=== PATIENT | female | born 1940 | race Caucasian/White ===

== ENCOUNTER 2019-03-29 06:05 | Inpatient (IN) | payer MEDICARE, SELFPAY ==
[2019-03-19 08:58] VITALS: BMI 27.8
[2019-03-29] VITALS (18 sets, daily range): BP systolic 133–147; BP diastolic 53–115; PULSE 62–119; RESP 13–18; TEMP 35.9–36.9; O2SAT 90–97; BMI 27.1
--- NOTE | 2019-03-29 | DI.RAD.S_ITS ---
PROCEDURE: XR CERVICAL SPINE 2V OR 3V INDICATIONS: C3-4, C4-5, C5-6 ACDF TECHNIQUE: 2 view(s) of the cervical spine were acquired. COMPARISON: None. FINDINGS: Bones: Immediate postoperative evaluation shows expected anatomic alignment established after after C3-C6 discectomy procedure as and anterior fusion plating with interbody disc prosthesis contiguously crossing C3-4, C4-5, and C5-6 Soft tissues: No prevertebral soft tissue swelling. IMPRESSION: Normal alignment established after C3-C6 discectomy procedures and anterior plate fusion. Dictated by: Kennedy Moody M.D. on 03/29/2019 at 12:04 Approved by: Kennedy Moody M.D. on 03/29/2019 at 12:06
[2019-03-29] MEDS: LACTATED RINGERS 1,000 ML 42 ML IV ×2 (07:24→09:46)
[2019-03-29] MEDS: GABAPENTIN 300 MG CAPSULE PO ×2 (07:27→20:46)
[2019-03-29] MEDS: CELECOXIB 200 MG CAPSULE 400 MG PO (07:27)
[2019-03-29] MEDS: ACETAMINOPHEN 325 MG TABLET 975 MG PO (07:27)
--- NOTE | 2019-03-29 07:42 | PM.PREOP ---
Pre-operative Note Interval Note History & Physical reviewed/Exam performed by Physician: Yes Changes to H&P: No
[2019-03-29] MEDS: CLINDAMYCIN 600 MG/50 ML PIGGYBACK 50 MG IV ×2 (08:05→16:07)
--- NOTE | 2019-03-29 08:50 | SUR.OPER ---
Supine, head on gel donut. Arms padded with gel pads, tucked at sides, towel roll under shoulders. Safety belt at thigh. Legs uncrossed.
[2019-03-29] MEDS: BUPIVACAINE 0.25% W/ EPI 30 ML VIAL INJ (08:57)
--- NOTE | 2019-03-29 11:09 | P.OP_ITS ---
Operative Date/Time/Diagnoses Date of procedure: 03/29/19 Time of procedure: 07:59 Pre-op diagnosis: 1. C3-4, C4-5, C5-6 spinal stenosis 2. 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 C3-4, C4-5, C5-6 anterior cervical diskectomy and fusion 2. C3-4, C4-5, C5-6 anterior interbody cage placement 3. C3-4, C4-5, C5-6 anterior instrumentation with plate and screw placement in C3, C4-C5-C6 vertebrae 4. Utilization of microsurgical technique and operating microscope Same procedure as scheduled: Yes Indications: Patient has been having chronic neck pain and worsening cervical radiculopathy. Patient failed multiple conservative management with worsening pain weakness and numbness in her upper extremity. Patient has been having difficulty performing activity of daily living. After discussing risks benefits of treatment options, patient elected proceed with surgery. Surgeon: Thor Sweeney Grip Wrapper: Carri Sequeira Click Yes if Unassisted: No Anesthesia Type: General Operative Notes Closure Type: primary Specimen(s): none sent Prosthetic devices, grafts, tissues, transplants, or devices: GLobus extend plate, PEEK cages Applied: catheter Estimated Blood Loss (mL): 20 Blood products transfused: none Procedure in detail: Patient was seen in the preoperative area. Risks and benefits of the surgery was discussed with the patient. Operative consent was obtained and placed in the chart. Patient was then taken to the operative room. Prophylactic antibiotic was given less than 0.5 hr prior to skin incision. General anesthesia was administered. Patient was placed into a supine position on her radiolucent table. Bilateral shoulders were taped down to allow proper C- arm imaging. Anterior cervical area was prepped and draped in a sterile fashion. Time-out was performed at this time. Using lateral C-arm imaging, the level between C3 and C6 was identified and marked on patient's neck. A oblique incision from midline towards medial border of sternocleidomastoid muscle was made. The platysma muscle was incised in line with skin incision. Metzenbaum scissor was used to develop the plane between the medial border of sternocleidomastoid d and the strap muscles medially. The carotid sheath and its contents were identified and protected behind the hand- held retractor during the entire case. The plane between the carotid sheath and strap muscles was developed with Metzenbaum scissors. Dissection was made down to the level of the anterior cervical fascia. Longus colli muscle was incised on the anterior aspect of vertebral bodies bilaterally from C3-C6. Spinal needle was placed into the C3-4 disc space and confirmed with lateral C-arm imaging. Using microsurgical technique and operative microscope, anterior cervical diskectomy was performed at C3-4 C4-5 and C5-6 level. This was done by removing the disc material, removing the anterior and posterior osteophytes posterior longitudinal ligaments along with performing bilateral foraminotomies at all 3 levels. Patient was found to have severe central and foraminal stenosis at all 3 levels. Patient's stenosis was fully decompressed after decompression was completed. After the diskectomy was completed, 3 anterior interbody cages were obtained. The cages were packed with globus via cell bone grafting material. One cage each along with the bone grafting material was then packed into the interbody spaces from C3-C6 with one cage into each interbody level. After the cages were placed, the anterior cervical plate was stabilized to the C3-C6 vertebrae using 2 screws at each each level. Total 8 screws were placed. After confirming placement of the hardware with AP and lateral C-arm imaging, the screws were locked into the plate using the locking mechanism and torque limiting screwdriver. After the hardware was placed and confirmed with AP and lateral C-arm imaging, the wound was irrigated with sterile normal saline. The platysma muscle and the subcutaneous tissue was closed with 2-0 Vicryl. The skin was closed with 4-0 Monocryl and Steri-Strips. Patient tolerated the procedure well. Patient was transferred recovery room in stable condition. There were no complications. Complications: none Post-operative Condition: stable Disposition: PACU Plan for aftercare: Admit to inpatient hospital
[2019-03-29] MEDS: HYDROMORPHONE 2 MG INJ IV (11:50)
--- NOTE | 2019-03-29 11:57 | SUR.PHASEI ---
Patient reported pain improving.
--- NOTE | 2019-03-29 12:10 | SUR.PHASEI ---
Report called to Radha
--- NOTE | 2019-03-29 12:16 | SUR.PHASEI ---
Dr. Vigil notified HR 108, no new orders. Ok for patient to discharge.
--- NOTE | 2019-03-29 12:31 | SUR.PHASEI ---
Patient transferred to the floor on o2 and with belongings bag. Report to Radha. VS stable. IV saline locked. Neck dressing CDI, collar in place. Patient moving arms and legs independently.
[2019-03-29] MEDS: HYDROCODONE/ACET 5/325 TABLET 1 TAB PO ×2 (14:12→21:16)
[2019-03-29] MEDS: SODIUM CHLORIDE 0.9% 1,000 ML 100 ML IV (14:15)
--- NOTE | 2019-03-29 15:14 | PC.NURSE ---
Patient to floor around 1230. Pulse rate has been high between 105-110. At one point it went up to 115. aware as well as anesthesiologist with a fax sent. Isatu ESCALERA also aware and will let them know again. She is asymptomatic and denies heart palpitations. Dressing to anterior neck is cdi, with soft collar on. Had a jennings catheter down in surgery but had to immediately take this out as patient is allergic to latex. SURVEY WORKER Nurse states that she had 75cc out. Patient is now stating that she has the urge to go to the bathroom. She is A&Ox3, with mild dementia, or forgefulness. Given 1 vicodin earlier and pt is dozing. HR is still about 107. is in room and he is very attentive to patients need. No swallowing issues at this time, able to swallow pills whole. She has not asked to eat anything at this time as she is sleepy but reorients well. Patient is on 2l of o2 and her sats are 97%. Resting comfortably.
[2019-03-29] MEDS: SENNOSIDES 8.6 MG TABLET 17.2 MG PO (20:46)
[2019-03-29] MEDS: MONTELUKAST 10 MG TABLET PO (20:46)
[2019-03-29] MEDS: DOCUSATE 100 MG CAPSULE PO (20:46)
[2019-03-29] MEDS: LOSARTAN 50 MG TABLET PO (20:46)
[2019-03-29] MEDS: FLUTICASONE 110MCG HFA 120 PUFF INH (20:47)
[2019-03-29] MEDS: SERTRALINE 50 MG TABLET 100 MG PO (20:47)
[2019-03-30] MEDS: CLINDAMYCIN 600 MG/50 ML PIGGYBACK 50 MG IV (00:33)
[2019-03-30] MEDS: SODIUM CHLORIDE 0.9% 1,000 ML 100 ML IV (00:34)
[2019-03-30 05:50] VITALS: BP 140/37; PULSE 88; RESP 16; TEMP 36.7; O2SAT 95
[2019-03-30 07:20] LABS: Hematocrit 36.9 % (36-46); Hemoglobin 12.6 g/dL (12.0-16.0)
[2019-03-30] MEDS: FLUTICASONE 110MCG HFA 120 PUFF INH (07:54)
--- NOTE | 2019-03-30 08:02 | RT ---
Encouraged pt to DB&C 10X/hr while awake. Cont pulse ox removed, the fabulous Nurse Radha informed.
[2019-03-30 08:03] VITALS: PULSE 75; RESP 16; O2SAT 96
[2019-03-30 08:20] VITALS: BP 143/89; PULSE 75; RESP 16; TEMP 36.3; O2SAT 98
[2019-03-30] MEDS: EZETIMIBE 10 MG TABLET PO (10:16)
[2019-03-30] MEDS: hydroCHLOROthiazide 25 MG TABLET 50 MG PO (10:16)
[2019-03-30] MEDS: FLUTICASONE 120 SPRAY/16 GM SPRAY.SUSP NASAL (10:16)
[2019-03-30] MEDS: HYDROCODONE/ACET 5/325 TABLET 1 TAB PO ×2 (10:16→14:26)
[2019-03-30] MEDS: DOCUSATE 100 MG CAPSULE PO (10:17)
--- NOTE | 2019-03-30 11:09 | OT.IP.EVAL ---
Current Diagnoses Other spondylosis with myelopathy, cervical region (03/29/19) Spinal stenosis, cervical region (03/29/19) Surgery Performed Operation Date: 03/29/19 07:45 Actual Procedures p C3-4, C4-5, C5-6 ACDF W/Anterior Instrumentation - Thor Sweeney MD Past Medical History (Last Updated 03/19/19 @ 09:55 by Sarah Puentes RN) Asthma (Acute) Brachial artery stenosis, right (Acute) Depression (Acute) DVT (deep venous thrombosis) (Acute ~2005) Fibromuscular dysplasia (Acute) Fibromuscular dysplasia of renal artery (Acute) GERD (gastroesophageal reflux disease) (Acute) HLD (hyperlipidemia) (Acute) HTN (hypertension) (Acute) Ischemic heart disease (Acute) Myocardial infarction (Acute ~2000) Numbness and tingling (Acute) Osteoarthritis (Acute) Pneumonia (Acute) Seizure (Acute) Tachycardia (Acute) Surgical History (Last Updated 03/19/19 @ 09:33 by Sarah Puentes RN) History of arthroplasty of left knee (Acute) History of arthroplasty of right knee (Acute) History of arthroscopy of right knee (Acute) History of total left hip arthroplasty (Acute) History of total right hip arthroplasty (Acute) Hx of bilateral cataract extraction (Acute) Hx of tubal ligation (Acute) S/P renal artery angioplasty (Acute) Occupational Therapy Inpatient Evaluation/Re-Eval M1 PT/OT-IP Prior Functional Status Start: 03/30/19 11:45 Freq: NEEDED Status: Active Protocol: Document 03/30/19 11:09 MERARY (Rec: 03/30/19 12:05 MERARY [id number]) Medical Review Prior Functional Status Medical History Reviewed Yes Diet/Fluid Consistency Regular Communication WNL Mobility and Gait Pt states she is independent with ambulation. She uses straight cane when her low back pain increases. Activities of Daily Living and IADL's Pt states she is independent with all self are skills and driving. Her does most of the cooking and nursing techn. Pt is able to walk through grocery store using cart for support. Prior Functional Level (Other details) Supportive can provide 24 hr assist at d/c. Social History Household Members spouse Living Arrangements House Number of Floors (Floors) Two Floors Number of Stairs To Enter/Railing? 1+1 stairs to enter (no rail); full flight of stairs to 2nd floor bedroom, bathroom with B rails Home Environment Standard Height Toilet,Walk in Shower,Built-In Shower Seat Home Equipment Straight Cane,Raised Toilet Seat Without Armrests,Hand Held Shower,Grab Bars In Shower Employment Status Retired M2 OT-IP Current Condition Start: 03/30/19 11:45 Freq: Status: Active Protocol: Document 03/30/19 11:09 PJM (Rec: 03/30/19 12:05 PJ [id number]) Occupational Therapy Current Condition Current Condition Evaluation Date 03/30/19 Treatment Diagnosis decreased self care, mobility s/p C3-6 ACDF w/instrumentation Diagnosis Onset Date 03/29/19 Post Operative Precautions Cervical Spine Precautions Soft Collar for Comfort,No Heavy Lifting,Log Roll M3 OT- IP Subjective and Pain Start: 03/30/19 11:45 Freq: Status: Active Protocol: Document 03/30/19 11:09 PJM (Rec: 03/30/19 12:05 PJ [id number]) OT- Subjective Occupational Therapy Visit Type Type Initial Evaluation Visit Start Time 10:10 Visit Stop Time 11:09 Total Visit Minutes 59 Notes Pt's here for education this session. Occupational Therapy Visit Comments Patient Comments I am swallowing OK. Patient/Caregiver Goals to resume independence with daily tasks at home with less pain, pt states she plans to have lumbar surgery when recovered from this surgery OT Pain Assessment Pain When Pain Assessed After Treatment Pain Present Pain Present Pain Reported Location Bilateral Upper Shoulder Intensity 3 Scale Used Numeric (1 - 10) Description Aching,Acute M4 OT- IP ADL's Start: 03/30/19 11:45 Freq: Status: Active Protocol: Document 03/30/19 11:09 PJM (Rec: 03/30/19 12:05 PJ [id number]) OT APR-Ihgn-Walrwyz General Evaluation Self-Feeding Ability Independent Comments OT Self-Feeding Comments pt denies swallowing deficits and educated to eat soft foods until fully recovered OT ADL-Grooming General Evaluation Grooming Ability Standby Assistance Comments OT Grooming Comments provided education re: body mechanics standing at sink OT ADL-Oral Care General Eval Oral Care Ability Standby Assistance Areas of Assistance Brushing Teeth Devices Oral Care Devices Toothbrush Comments Oral Care Comments provided education re: body mechanics standing at sink OT ADL-Dressing General Eval Upper Body Dressing Ability Independent Lower Body Dressing Ability Standby Assistance Areas Needing Assistance Underpants/Brief,Socks Assistive Devices Dressing Assistive Devices Oyster Planter,Sock Aid Comments OT Dressing Comments Pt has B LE stiffness from B hip and knee replacements. Provided domain architect and sock aid to assist with lower body dressing within C spine precautions. Pt familiar with use of this equipment from previous BLE surgeries but had given equipment away. Pt wears slip on shoes OT ADL-Toileting General Evaluation Toileting Ability Independent Comments OT Toileting Comments provided education re: body mechanics OT ADL-Bathing Devices Bathing Equipment Long Handled Sponge or [place], Hand Held Shower Sprayer Comments OT Bathing Comments pt declined to shower here; provided education re: safety, body mechanics and methods to keep incision dry; provided long bath sponge M5 OT- IP IADL's Start: 03/30/19 11:45 Freq: Status: Active Protocol: Document 03/30/19 11:09 PJ (Rec: 03/30/19 12:05 [facility] [id number]) OT-Instrumental Activities of Daily Living Deficits IADL Deficits Identified Deficits Home Safety Awareness Awareness of Need for Assistance at Home Good Awareness Ability to Problem Solve Emergency Able to Problem Solve Situations Medication Management Medication Management Caregiver Provides Supervision Medication Management Comments pt appears mildly forgetful, available to assist PRN Money Management Money Management No Deficits Identified Meal Preparation Meal Preparation Caregiver Provides Assist Meal Preparation Comments can assist PRN Design Quality Engineer Design Quality Engineer Caregiver Provides Assist Design Quality Engineer Comments can assist PRN Driving Driving Caregiver Provides Assist Driving Comments can assist PRN M6 OT- IP Functional Cognition Start: 03/30/19 11:45 Freq: Status: Active Protocol: Document 03/30/19 11:09 PJM (Rec: 03/30/19 12:05 [facility] [id number]) Cognitive Factors Limiting Selfcare Function Cognitive Ability Level of Alertness Alert Attention Span Ability Capable of Focused Attention, Capable of Sustained Attention Ability to Follow Commands Able to Follow One Step Commands Safety Awareness Decreased Recall of Precautions,Decreased Ability to Apply Precautions Problem Solving Ability Needs Assist to Identify Solutions Cognitive Comments Cognitive Assessment Comments Pt very verbal and distracts self with conversation at times; appears to have mild short term memory deficits. ? medication related OT- Vision and Hearing OT- Hearing Assessment OT- Hearing Assessment WFL OT- Vision Assessment Visual Acuity WFL,Glasses For Reading M7 OT- IP Mobility and Balance Start: 03/30/19 11:45 Freq: Status: Active Protocol: Document 03/30/19 11:09 PJM (Rec: 03/30/19 12:05 PJ [id number]) OT- Bed Mobility Assessment Rolling Type of Rolling Roll to Right Level of Assistance Standby Assistance Supine to Sit Supine to Sit Assist Standby Assistance,1 Person Assistance Sit to Supine Sit to Supine Assist 1 Person Assistance Scooting Scooting to Edge of Bed Standby Assistance,1 Person Assistance Scooting Up and Down in Bed 1 Person Assistance OT-Transfer Assessment Sit to and From Stand Sit to and from Stand Standby Assistance,1 Person Assistance Transfers Transfer Ability Standby Assistance,1 Person Assistance Technique Transfer Destination Chair,Toilet Transfer Technique Stand Step Pivot Devices Transfer Assistive Devices Gait Belt,Front Wheeled Walker Comments Mobility Comments provided education re: log rolling technique and precautions OT- Gait Assessment Gait Gait Assistance Required: Standby Assistance Distance (Feet) 25 Assistive Devices Assistive Device Gait Belt,Front Wheeled Walker Comments Gait Ability Comments no LOB or dizziness noted OT- Balance Assessment Sitting Balance and Reactions Static Sitting Balance Ability Good Dynamic Sitting Balance Ability Good Standing Balance and Reactions Static Standing Balance Ability Good Dynamic Standing Balance Ability Good Comments Other Balance Tests/Deviations/Treatment during lower body dressing, : toileting and standing at sink for grooming M8 OT- IP Objective Assessments Start: 03/30/19 11:45 Freq: Status: Active Protocol: Document 03/30/19 11:09 PJM (Rec: 03/30/19 12:05 PJ [id number]) OT Gross Range of Motion Upper Extremity Range of Motion Assessment Within Functional Limits OT Strength Upper Extremity Strength Assessment Within Functional Limits OT- Coordination Assessment Comments Coordination Comments BUE WFL for self care OT-Muscle Tone Assessment Muscle Tone WNL Yes OT Sensation Assessment Comments Summary Comments BUE WNL per pt Edema Edema Absent M9 OT- IP Assessment and Plan Start: 03/30/19 11:45 Freq: Status: Active Protocol: Document 03/30/19 11:09 PJM (Rec: 03/30/19 12:05 PJ [id number]) OT Summary Assessment and Plan Potential Rehabilitation Potential Good Summary Progress Towards Goals Safe For Discharge Assessment Summary Low complexity OT assessment and all education completed with pt and today re: C-spine precautions, body mechanics, log rolling and adapted self care techniques as described above. Pt is familiar with lower body dressing techniques from previous B DARIANA and B TKA. Anticipate pt will return home when medically stable and clears P.T. Supportive can provide 24 hr assist after d/c. No further OT services needed. Frequency of Treatment Frequency Of Treatment Discharge Discharge Recommendations OT Discharge Recommendations Home with Assistance Transportation Needs at Discharge Private Vehicle
--- NOTE | 2019-03-30 11:18 | PT.IIE ---
Current Diagnoses Other spondylosis with myelopathy, cervical region (03/29/19) Spinal stenosis, cervical region (03/29/19) Surgery Performed Operation Date: 03/29/19 07:45 Actual Procedures p C3-4, C4-5, C5-6 ACDF W/Anterior Instrumentation - Thor Sweeney MD Surgical History (Last Updated 03/19/19 @ 09:33 by Sarah Puentes RN) History of arthroplasty of left knee (Acute) History of arthroplasty of right knee (Acute) History of arthroscopy of right knee (Acute) History of total left hip arthroplasty (Acute) History of total right hip arthroplasty (Acute) Hx of bilateral cataract extraction (Acute) Hx of tubal ligation (Acute) S/P renal artery angioplasty (Acute) Medical History (Last Updated 03/19/19 @ 09:55 by Sarah Puentes RN) Asthma (Acute) Brachial artery stenosis, right (Acute) Depression (Acute) DVT (deep venous thrombosis) (Acute ~2005) Fibromuscular dysplasia (Acute) Fibromuscular dysplasia of renal artery (Acute) GERD (gastroesophageal reflux disease) (Acute) HLD (hyperlipidemia) (Acute) HTN (hypertension) (Acute) Ischemic heart disease (Acute) Myocardial infarction (Acute ~2000) Numbness and tingling (Acute) Osteoarthritis (Acute) Pneumonia (Acute) Seizure (Acute) Tachycardia (Acute) Physical Therapy Inpatient Evaluation/Re-Eval M1 PT/OT-IP Prior Functional Status Start: 03/30/19 11:45 Freq: NEEDED Status: Active Protocol: Document 03/30/19 11:09 MERARY (Rec: 03/30/19 12:05 MERARY [id number]) Medical Review Prior Functional Status Medical History Reviewed Yes Diet/Fluid Consistency Regular Communication WNL Mobility and Gait Pt states she is independent with ambulation. She uses straight cane when her low back pain increases. Activities of Daily Living and IADL's Pt states she is independent with all self are skills and driving. Her does most of the cooking and household appliance installer. Pt is able to walk through grocery store using cart for support. Prior Functional Level (Other details) Supportive can provide 24 hr assist at d/c. Social History Household Members spouse Living Arrangements House Number of Floors (Floors) Two Floors Number of Stairs To Enter/Railing? 1+1 stairs to enter (no rail); full flight of stairs to 2nd floor bedroom, bathroom with B rails Home Environment Standard Height Toilet,Walk in Shower,Built-In Shower Seat Home Equipment Straight Cane,Raised Toilet Seat Without Armrests,Hand Held Shower,Grab Bars In Shower Employment Status Retired M1 PT/OT-IP Prior Functional Status Start: 03/30/19 14:46 Freq: NEEDED Status: Active Protocol: Document 03/30/19 11:18 AB (Rec: 03/30/19 15:08 AB [id number]) Medical Review Prior Functional Status Medical History Reviewed Yes Diet/Fluid Consistency Regular Communication able to make needs known Mobility and Gait pt stated that she is modified independent with all mobilities and ambulation using SPC. occasionally does not use SPC indoors. Activities of Daily Living and IADL's per OT's note: Pt states she is independent with all self are skills and driving. Her does most of the cooking and household appliance installer. Pt is able to walk through grocery store using cart for support. Prior Functional Level (Other details) Supportive can provide 24 hr assist at d/c. Social History Household Members spouse Living Arrangements House Number of Floors (Floors) Two Floors Number of Stairs To Enter/Railing? 1 + 2 steps without rails to enter the house has 1 flight of steps (~ 15 steps) to get to 2nd level bedroom Home Environment Standard Height Toilet,Walk in Shower,Built-In Shower Seat Home Equipment Straight Cane,Hand Held Shower ,Grab Bars In Shower Employment Status Retired M2 PT-IP Current Condition Start: 03/30/19 14:46 Freq: NEEDED Status: Active Protocol: Document 03/30/19 11:18 AB (Rec: 03/30/19 15:08 AB [id number]) Physical Therapy Current Condition Current Condition Evaluation Date 03/30/19 Treatment Diagnosis C3-6 ACDF; difficulty in walking Onset Date 03/29/2019 Precautions Cervical Spine Precautions Soft Collar for Comfort,No Heavy Lifting,Log Roll M3 PT-IP Subjective Start: 03/30/19 14:46 Freq: NEEDED Status: Active Protocol: Document 03/30/19 11:18 AB (Rec: 03/30/19 15:08 AB [id number]) Subjective Physical Therapy Visit Type Type Initial Evaluation Visit Start Time 11:18 Visit Stop Time 12:09 Total Visit Minutes 51 Number of PRIMARY OPERATOR Visits 0 Physical Therapy Visit Comments Patient Comments pt agreeable to do PT Therapy Pain Assessment Pain When Pain Assessed At Rest Pain Present Pain Present Pain Reported Location Bilateral Upper Shoulder Intensity 4 Scale Used Numeric (1 - 10) Pain Management Techniques Re-positioning,Timing of Activity with Medications M4 PT-IP Mobility and Gait Start: 03/30/19 14:46 Freq: NEEDED Status: Active Protocol: Document 03/30/19 11:18 AB (Rec: 03/30/19 15:08 AB [id number]) PT-Bed Mobility Assessment Rolling Type of Rolling Log Rolling Level of Assist Standby Assistance Supine to Sit Supine to Sit Standby Assistance Sit to Supine Sit to Supine Standby Assistance Scooting Scooting to Edge of Bed Standby Assistance Scooting Up and Down in Bed Standby Assistance PT-Transfer Assessment Sit to and From Stand Sit to and from Stand Contact Guard Assistance,1 Person Assistance,Use of Upper Extremities Equipment Transfer Assistive Device Gait Belt,Straight Cane,Front Wheeled Walker Orthotic/Prosthetic Devices or Brace: Yes Transfers Transfer Destination Bed,Chair Transfer Technique ambulated Transfer Ability Level of Assist Contact Guard Assistance,1 Person Assistance,Use of Upper Extremities Comments Mobility Comments pt completed sit to stand from the chair. ambulated towards the bed using FWW SBA ~ 12 ft . completed log roll supine<> sit x 2 reps SBA and cues for techniques. pt ambulated using SPC towards the stairs ~ 125 ft SBA to occasional CGA and cues. pt completed stairs . pt with difficulty with stair climbing without AD. spouse in room and educated pt and spouse on stairs. conducted caregiver training up/down step stool using SPC/ ASSISTANT FINANCE MANAGER but further training is required. positioned pt on the chair. informed pt and spouse that PT will see pt again in the afternoon for more caregiver training. left pt in room with call light and table within reach. chair alarm on. spouse in room with pt. informed nurse that PT will conduct more caregiver training prior to d/c. Gait Assessment Gait Gait Assistance Required: Standby Assistance,Contact Guard Assist,1 Person Assist Distance (Feet) 125 Able to Maintain Weight Bearing Status Yes During Gait Assistive Devices Assistive Device Gait Belt,Straight Cane Orthotic/Prosthetic Devices or Brace: No Gait Deviations General Gait Pattern Antalgic,Decreased Stride Length,Decreased Feet Clearance,Flexed Trunk,Lateral Trunk Lean Factors Limiting Gait Function Factors Limiting Gait Function Decreased Activity Tolerance, Decreased Strength,Difficulty Following Directions,Limited Range of Motion,Pain,Poor Balance,Poor Safety Awareness Comments Gait Comments pt with antalgic gait increase lateral trunk flexion to the R and with forward flexed posture. Stair Climbing Assessment Evaluation Level of Assist On Stairs Standby Assistance,Moderate Assistance,Maximal Assistance, 1 Person Assistance Devices Stair Climbing Assistive Devices Straight Cane,Left Railing, Right Railing Technique/Endurance Stair Climbing Direction Ascend and Descend Stair Climbing Technique Step to Step Number of Steps Climbed 3 Query Text: Stair Climbing Set # Repetitions (reps) 3 Comments Stair Climbing Comments completed up/down steps using bilateral rails SBA completed up/down steps using SPC/ASSISTANT FINANCE MANAGER mod to max A and max cues completed up/down step stool mod to max A and max cues using SPC/ASSISTANT FINANCE MANAGER PT-Balance Assessment Sitting Balance and Reactions Static Sitting Balance Ability Good Dynamic Sitting Balance Ability Good Standing Balance and Reactions Static Standing Balance Ability Fair Dynamic Standing Balance Ability Fair Device Used SPC M5 PT-IP Objective Assessments Start: 03/30/19 14:46 Freq: NEEDED Status: Active Protocol: Document 03/30/19 11:18 AB (Rec: 03/30/19 15:08 AB [id number]) Orientation Orientation/Cognition Level of Alertness Alert Orientation Name,Place,Situation Language Function Ability Hard of Hearing Safety Awareness Decreased Safety Awareness Memory Description Short Term Impaired Comments pt initially alert but towards the end of the session became confused. nurse aware and stated that she has given her vicodin and may cause the confusion Gross Range of Motion Lower Extremity ROM Assessment Within Functional Limits Strength Lower Extremity Strength Assessment Right Impaired Hip 3+/5 Knee 3+/5 Sensation Assessment Sensation Gross Sensation WNL Muscle Tone Muscle Tone WNL Yes M6 PT-IP Treatment Start: 03/30/19 14:46 Freq: NEEDED Status: Active Protocol: Document 03/30/19 11:18 AB (Rec: 03/30/19 15:08 AB [id number]) Physical Therapy Treatment Education Education Provided Precautions,Weight Bearing Status,Post-Op Packet,Safety M7 PT-IP Assessment and Plan Start: 03/30/19 14:46 Freq: NEEDED Status: Active Protocol: Document 03/30/19 11:18 AB (Rec: 03/30/19 15:08 AB [id number]) PT Summary Assessment and Plan Potential Rehabilitation Potential Good Status of Condition at Evaluation Stable Summary Impairments Pain,ROM,Strength,Balance, Coordination,Sensation,Tone, Cognition,Bed Mobility, Transfers,Gait,Activity Tolerance Assessment Summary pt requiring SBA to CGA with ambulation using SPC but requires mod to max A with stairs without rails using SPC /ASSISTANT FINANCE MANAGER. caregiver training initiated but further training is needed. d/c plan depending on caregiver training result/safety and if spouse is able to assist pt safely, pt may go home when medically stable. Goals Bed Mobility Goal Independent Transfer Goal Independent,Cane Gait Goal Independent,Cane Gait Distance 150 Other Goals up/down 15 steps bilateral rails SBA up/down 1+2 steps without rails SPC/ASSISTANT FINANCE MANAGER min A Days to Meet Goals 5 Frequency of Treatment Frequency Of Treatment Twice a Day Treatment Plan Physical Therapy Treatment Plan Bed Mobility Training,Transfer Training,Gait Training, Therapeutic Exercise,Balance Retraining,Post Op Education, Discharge Planning,Hot or Cold Pack,Neuromuscular Re-ed, Coordination Retraining,Manual Therapy Other Recommendations and Next Treatment caregiver training, stair Focus climbing Recommendations To Nursing Amount of Assist Needed 1 Person Assist Discharge Recommendations PT Discharge Recommendations Home with 29/08 Assist Transportation Needs at Discharge Private Vehicle
[2019-03-30 12:28] VITALS: BP 160/67; PULSE 87; RESP 16; TEMP 36.1; O2SAT 95
--- NOTE | 2019-03-30 14:27 | PM.PN.1 ---
Subjective Subjective Date Patient Seen: 03/30/19 Time Patient Seen: 14:27 Interval history: 78 year old female who is POD#1 s/p C3-4, C4-5, C5-[address] Sweeney. No events overnight. Pain has been mild to moderate and controlled with [place]. She has mobilized with PT and completed OT. She has no chest pain, shortness of breath, nausea or vomiting. Exam Vital Signs (past 8 hours): - 03/30/19 08:03 03/30/19 08:20 Temperature 97.4 F L Pulse Rate 75 75 Respiratory Rate 16 16 Blood Pressure 143/89 H Pulse Oximetry 96 98 Oxygen Delivery Method Room Air Oxygen Flow Rate 0 Narrative Exam Narrative: 78 year old female resting comfortably in a chair. Alert and oriented in no acute distress. Patient wearing soft collar. Dressing in place is CDI. Skin Toggler strength is equal. Sensation intact in BUE. Objective Labs Result Diagrams: 03/30/19 06:35 Labs: Laboratory Results - last 24 hr 03/30/19 06:35 Hgb 12.6 Hct 36.9 Assessment & Plan Assessment & Plan narrative: Patient is progressing well postoperatively. She has mobilized with PT and worked with OT. She does have a flight of stairs at home which she will need to navigate. Will need to complete an additional stair training prior to discharge. Continue [place] as well as Vistaril for spasm. Scripts provided. Possible discharge to home later today or tomorrow morning pending stair training. Quality VTE Deep Vein Thrombosis/Pulmonary Embolism Present on Admission: No
[2019-03-30 15:48] VITALS: BP 159/79; PULSE 81; RESP 16; TEMP 37.1; O2SAT 94
--- NOTE | 2019-03-30 15:50 | PT.IPTN ---
Current Diagnoses Other spondylosis with myelopathy, cervical region (03/29/19) Spinal stenosis, cervical region (03/29/19) Surgery Performed Operation Date: 03/29/19 07:45 Actual Procedures p C3-4, C4-5, C5-6 ACDF W/Anterior Instrumentation - Thor Sweeney MD Physical Therapy Treatment Note M2 PT-IP Current Condition Start: 03/30/19 14:46 Freq: NEEDED Status: Discharge Protocol: Document 03/30/19 11:18 AB (Rec: 03/30/19 15:08 AB [id number]) Physical Therapy Current Condition Current Condition Evaluation Date 03/30/19 Treatment Diagnosis C3-6 ACDF; difficulty in walking Onset Date 03/29/2019 Precautions Cervical Spine Precautions Soft Collar for Comfort,No Heavy Lifting,Log Roll M3 PT-IP Subjective Start: 03/30/19 14:46 Freq: NEEDED Status: Discharge Protocol: Document 03/30/19 14:45 KS (Rec: 03/30/19 17:19 KS [id number]) Subjective Physical Therapy Visit Type Type Treatment Note Visit Start Time 14:45 Visit Stop Time 15:50 Total Visit Minutes 65 Number of SAFETY ADMINISTRATOR Visits 1 Physical Therapy Visit Comments Patient Comments PA present in room upon arrival from therapy. Pts present for caregiver training. Therapy Pain Assessment Pain When Pain Assessed At Rest Pain Present Pain Present Pain Reported Location Bilateral Upper Shoulder Scale Used no number given Pain Management Techniques Timing of Activity with Medications M4 PT-IP Mobility and Gait Start: 03/30/19 14:46 Freq: NEEDED Status: Discharge Protocol: Document 03/30/19 14:45 KS (Rec: 03/30/19 17:19 KS [id number]) PT-Transfer Assessment Sit to and From Stand Sit to and from Stand Standby Assistance,1 Person Assistance,Use of Upper Extremities Equipment Transfer Assistive Device Gait Belt,Straight Cane Orthotic/Prosthetic Devices or Brace: Yes Transfers Transfer Destination Chair Transfer Technique ambulated Transfer Ability Level of Assist Standby Assistance,1 Person Assistance,Use of Upper Extremities Comments Mobility Comments Pt was in chair upon arrival from therapy w/ in room. Pt able to recall surgical precautions. SAFETY ADMINISTRATOR assessed carryover of stair sequencing prior to initiating treatment, pt and need detailed reminders of SPC management and stair sequencing of LE and SPC. SAFETY ADMINISTRATOR demonstrated how to provide SPRING UPHOLSTERER w/ prior to stairs . Pt was SBA for sit<>stand from chair w/ SPC and ambulation. Pt then performed stair training and caregiver training w/ and returned to room SBA for stand <>sit. SAFETY ADMINISTRATOR then wrote instructions for stairs w/ SPC for pt and to take home. Pt and needed multiple cues when ascneding and descending stairs. SAFETY ADMINISTRATOR offered to try steps one more time in order for referall to go home, but pt adamantly refused. Gait Assessment Gait Gait Assistance Required: Standby Assistance,1 Person Assist Distance (Feet) 150 Able to Maintain Weight Bearing Status Yes During Gait Assistive Devices Assistive Device Gait Belt,Straight Cane Orthotic/Prosthetic Devices or Brace: No Gait Deviations General Gait Pattern Antalgic,Decreased Stride Length,Decreased Feet Clearance,Flexed Trunk,Lateral Trunk Lean Factors Limiting Gait Function Factors Limiting Gait Function Decreased Activity Tolerance, Decreased Strength,Difficulty Following Directions,Limited Range of Motion,Pain,Poor Balance,Poor Safety Awareness Comments Gait Comments Pt amabulated ~150 ft w/ SPC and SBA. On the way to stairs, pt used SPC in L hand, but switched to R hand on the way back from stairs and noted that she often switches hands while at home. Cues for upright posture required. Stair Climbing Assessment Evaluation Level of Assist On Stairs Contact Guard Assistance, Moderate Assistance,1 Person Assistance Devices Stair Climbing Assistive Devices Straight Cane Technique/Endurance Stair Climbing Direction Ascend and Descend Stair Climbing Technique Step to Step Number of Steps Climbed 3 Stair Climbing Set # Repetitions (reps) 3 Comments Stair Climbing Comments Pt completed first set of stairs w/ SAFETY ADMINISTRATOR providing CGA and hand hold assist in R hand and instructions for sequencing for pt and caregiver. Informed / caregiver prior to initiating stair training that he will need to provide full assistance and cues on second attempt. Pt needs instruction for correct sequencing and often tries to advance weaker limb first going up. Pt able to complete stairs w/ SAFETY ADMINISTRATOR w/ Max cues/step by step directions. On second attempt, SAFETY ADMINISTRATOR had to remind caregiver and pt of hand placement and sequencing several times. Pts was only able to give correct sequencing cues intermittently, and often confused limb and SPC advancement on stairs. During descent, needed frequent reminders for his foot placement and body mechanics for his own safety and pt complained several times that he was pushing her back and not letting her come down the step. Pt and trialled steps one more time, w / clear direction for to provide direct cues and pt to listen to before advancing limb or SPC. Slightly better carryover on third attempt ascending stairs , but pt not listening and slightly argumentative w/ . On descent, pts forgot correct hand placement for guarding/ assisting pt and needed reminder and pt advanced stronger LLE first, leaving RLE to provide support and became unsteady but recovered by momentarily grabbing R hand rail. Pt and did not work well together d/t pts arguing and lack of confidence as wells as both pt and caregiver forgetting correct sequencing. This SAFETY ADMINISTRATOR offered one last attempt at stairs to see if pt and could perform safely w /o cues, but pt adamantly refused and said she has been using the stairs for 15 years and is not going to fall. Pt and left in room w/ instructions for stair sequencing and guarding. PT-Balance Assessment Sitting Balance and Reactions Static Sitting Balance Ability Good Dynamic Sitting Balance Ability Good Standing Balance and Reactions Static Standing Balance Ability Fair Dynamic Standing Balance Ability Fair Device Used SPC M5 PT-IP Objective Assessments Start: 03/30/19 14:46 Freq: NEEDED Status: Discharge Protocol: Document 03/30/19 11:18 AB (Rec: 03/30/19 15:08 AB [id number]) Orientation Orientation/Cognition Level of Alertness Alert Orientation Name,Place,Situation Language Function Ability Hard of Hearing Safety Awareness Decreased Safety Awareness Memory Description Short Term Impaired Comments pt initially alert but towards the end of the session became confused. nurse aware and stated that she has given her vicodin and may cause the confusion Gross Range of Motion Lower Extremity ROM Assessment Within Functional Limits Strength Lower Extremity Strength Assessment Right Impaired Hip 3+/5 Knee 3+/5 Sensation Assessment Sensation Gross Sensation WNL Muscle Tone Muscle Tone WNL Yes M6 PT-IP Treatment Start: 03/30/19 14:46 Freq: NEEDED Status: Discharge Protocol: Document 03/30/19 14:45 KS (Rec: 03/30/19 17:19 KS [id number]) Physical Therapy Treatment Education Education Provided Precautions,Weight Bearing Status,Safety M7 PT-IP Assessment and Plan Start: 03/30/19 14:46 Freq: NEEDED Status: Discharge Protocol: Document 03/30/19 14:45 KS (Rec: 02/22/20 17:19 KS [id number]) PT Summary Assessment and Plan Potential Rehabilitation Potential Good Status of Condition at Evaluation Stable Summary Impairments Pain,ROM,Strength,Balance, Coordination,Sensation,Tone, Cognition,Bed Mobility, Transfers,Gait,Activity Tolerance Assessment Summary After thorough instructions and review on stair and SPC management, pt was SBA for sit <>stand and ambulation w/ SPC w/ cues for upright posture. Pt completed 3 stairs x3 w/ CGA/SPRING UPHOLSTERER and Max cues for sequencing from SAFETY ADMINISTRATOR on first attempt. SAFETY ADMINISTRATOR informed that he would need to provide correct assistance and cues to pt on stairs before referral to go home. On second attempt, pt and needed several reminders for sequencing, hand placement and guarding from , and SPC advancement. On descent, pt told he was pushing her back and stopping her from being able to descend steps. SAFETY ADMINISTRATOR reminded of transformer shop supervisor and SPRING UPHOLSTERER, and reminded pt that she needs to listen to the cues her is giving her before advancing limb. Pt and completed 3rd attempt , but this SAFETY ADMINISTRATOR still had to interfere several times to remind pt and of sequencing and on last descending step, pt tried to advance stronger leg first, leaving weaker leg for support and became unsteady, but was able to recover by grasping R hand rail. Pt and did not work well together and could both be at risk for injury d/t husbands poor body mechanics and guarding and pts impulsivity and weakness. SAFETY ADMINISTRATOR offered to trial steps again to see if pt and could complete w/o cues, but pt refused. Recommending that pt stays another night so that stair and caregiver training carryover and safety be assessed tomorrow before d/c. Pt and provided w/ written instructions for stairs. Goals Bed Mobility Goal Independent Transfer Goal Independent,Cane Gait Goal Independent,Cane Gait Distance 150 Other Goals up/down 15 steps bilateral rails SBA up/down 1+2 steps without rails SPC/SPRING UPHOLSTERER min A Days to Meet Goals 5 Frequency of Treatment Frequency Of Treatment Twice a Day Treatment Plan Physical Therapy Treatment Plan Bed Mobility Training,Transfer Training,Gait Training, Therapeutic Exercise,Balance Retraining,Post Op Education, Discharge Planning,Hot or Cold Pack,Neuromuscular Re-ed, Coordination Retraining,Manual Therapy Other Recommendations and Next Treatment caregiver training, stair Focus climbing Recommendations To Nursing Amount of Assist Needed 1 Person Assist Discharge Recommendations PT Discharge Recommendations Home with 24/ Assist Transportation Needs at Discharge Private Vehicle
--- NOTE | 2019-03-30 17:10 | PC.NURSE ---
Assumed care of pt at 1500. PA in for rounding states pt may discharge home if able to complete stairs with P.T. See P.T. documentation for details. Discharge teaching completed including prevention of falls and home safety. Advised to have someone come into their home to install hand-rails on stairs and bathroom. Pt verbalized understanding of all discharge instructions but forgetfulness noted. IV removed. Pt dressed. Trans to w/c. Escorted off unit by PRACTICING DERMATOLOGIST and spouse to private vehicle. Pt left in stable condition with all personal belongings.
--- NOTE | 2019-03-31 08:08 | CM.DANOTE ---
Discharge Planning/Care Management DCP: assessment: Late enty for yesterday: 03/30: Case was received and discussed in Team Rounds. Pt is a 78 year old female who admitted 03/29 for a planned spinal/cervical surgery: surgeon: Dr. Sweeney. Payer: Medicare and [facility] PCP: Brad Cool Admission status: INPT. Ortho PA saw pt and ok'd her for d/c to home setting if she was cleared by PT. A check in this morning shows that pt did well in the afternoon PT session and was able to d/c to home setting with spouse support, as per her pre-op plan, at 1700. Advanced directive, confirm from FAMILY Start: 03/29/19 14:20 Freq: Q24H Status: Discharge Protocol: Document 03/29/19 16:00 GMP (Rec: 03/29/19 17:24 GMP [id number]) Advance Directive, confirm on record Time 16:00 Person contacted pt and spouse Copy received No Document 03/30/19 17:00 GMP (Rec: 03/30/19 17:10 GMP [id number]) Advance Directive, confirm on record Time 16:00 Person contacted pt and spouse Copy received No Time 17:00 Person contacted pt Copy received No CM Discharge Assessment Start: 03/31/19 08:06 Freq: Status: Discharge Protocol: Document 03/31/19 08:07 ITV (Rec: 03/31/19 08:08 ITV [id number]) Discharge Planning Assessment Advance Directives? Yes Advance Directives on File No History Provided By Medical Record Prior Living Arrangements House Household Members spouse Discharge Plan Home Review Status In Process Pre-Anesthesia Assessment Start: 03/19/19 08:58 Freq: Status: Complete Protocol: Document 03/19/19 08:58 CAB (Rec: 03/19/19 09:45 CAB [id number]) Pre-Anesthesia Assessment PAC Comment 03/25/19-Pt called in with airway reactions, exacerbating asthma symptoms when using chlorhexidine body wash. Advised to discontinue, use an antimicrobial soap and inform surgeon Patient Information Reviewed Via Phone Assessment Assessment Completed With Patient Diagnostic Results BMP/CMP,CBC,EKG Comment Outside labs/EKG scanned to record Primary Care Provider Brad Cool Seen Specialist in Last 12 Months Yes Specialist Seen [employer] Architect,Opthamologist/ Land Survey Technician,Orthopedist,Other Primary Language Ethiopian Interior Design Project Manager Required No Height 160.02 cm Weight 71.214 kg Body Mass Index (BMI) 27.8 Hearing Ability Normal Visual Assist Glasses Dentition Type Teeth, Natural Present Barriers to Learning None,Memory Comment Mild cognitive impairment Hx Anesthesia Reactions Yes: Hyptotensive s/p a knee surgery Hx Family Anesthesia Reaction No Hx Malignant Hyperthermia No Hx Blood Transfusions Yes: s/p knee replacement Hx Blood Transfusion Reaction No Anesthesia Review Requested No Alcohol Intake Frequency Other: Not currently r/t taking narcotics Smoking Status Never smoker Substance Use Type does not use Comment CBD oil Pain Present Pain Reported Musculoskeletal Symptoms Abnormal Gait,Difficulty Walking,Joint Pain,Limited Range of Motion,Neck Pain, Numbness,Radiating Pain into Limb,Tingling History of Falling (Recent or History of Yes ) Patient is completely paralyzed or No completely immobile Prosthesis or Orthotic Device Cane Mental Status Oriented to own ability Is patient on oxygen? No Does patient have FREDERICK/SOB Yes Hx Sleep Apnea No Currently Taking a Beta Matthew No Can You Climb a Flight of Stairs Without No SOB Hx Chest Pain Yes Hx SOB Yes Hx Syncope or Dizziness Yes: Dizziness Anti-Coagulant Therapy No Has a [employer] Architect Yes: Dr. Espinoza-visit 01/31/19 Cardiac Testing Yes: Echo, Lower extrem US Hx Pacemaker/ICD No Pacemaker Rep Required? No Cardiac Clearance Received Yes Comment Cardiac records scanned to record Diet Type At Home Regular dysphagia Yes: Occasional things go down the wrong way Bladder Pattern Incontinent,Nocturia Urinary Catheter Present No Hx Urinary Self Catheterization No Diabetes No Patient No Lactating No Hx Drug Resistant Organism No Presence of External or Internal Medical Yes: Bilat hips, knees, Devices prosthesis, bilat eye lens Have you traveled outside the [facility] in the last 30 days? Marital Status Lives With spouse Prior Living Arrangements House Number of Floors (Floors) Two Floors Support System Spouse Does the Patient Have Assistance After Yes Surgery Patient Discharge Plan Description Return Home Comment Pt advised 1 day length of stay per surgeon Feels Safe in Current Environment Yes Been Physically Hurt or Threatened By a No Person in Current Environment Do you have thoughts of harming yourself None or others? Are you currently considering suicide? No Do you have a plan to hurt yourself or No Plan others? Do You Have Any Spiritual Beliefs That No May Affect Your HC Choices? Do You Have Any Cultural Practices That No May Affect Your HC Choices? Comment Confucianism Who Can We Speak to About Patient's Care Family, friends Identifying Code for Release of Patient Declines to issue Information Health Care Proxy/Next of Kin Preston () Health Care Proxy Emergency Contact Name Preston () She ( daughter) Emergency Contact Phone Number Preston: [phone] She: Advance Directives? Yes Advance Directives on File No Requested Patient Bring Advanced Yes Directives DOS Power of Networker Yes Power of Networker Name Preston () Power of Networker PAC Instructions Durable medical equipment, Medications to take/avoid, Nasal antibiotic,No ETOH/ petroleum product on skin DOS, NPO,Post-op transportation,Pre -surgical wash,Sturdy shoes/ comfortable clothes,Do not bring valuables and remove jewelry
== END 2019-03-30 17:05 | disposition home or self-care (01) | DRG 472 ==
PROVIDERS: Admitting Provider Orthopaedic Surgery Orthopaedic Surgery of the Spine; PCP Internal Medicine; Referring Provider Orthopaedic Surgery Orthopaedic Surgery of the Spine; Visit Provider Orthopaedic Surgery Orthopaedic Surgery of the Spine
PROC: 0RG20A0 Fusion of 2 or more Cervical Vertebral Joints with Interbody Fusion Device, Anterior Approach, Anterior Column, Open Approach (ICD-10-PCS; principal; 2019-03-29 07:45)
DX: M48.02 Spinal stenosis, cervical region (principal); M47.12 Other spondylosis with myelopathy, cervical region; M47.22 Other spondylosis with radiculopathy, cervical region; I10 Essential (primary) hypertension; J45.909 Unspecified asthma, uncomplicated; F41.9 Anxiety disorder, unspecified
CPT/HCPCS: 36415; 72040; 76000; 85014; 85018; 94640; 97116; 97161; 97165; 97530; 97535; C1776; J0330; J1100; J1170; J2405; J2704; J3010